=== PATIENT | male | born 1940 | race Caucasian/White ===

== ENCOUNTER → 2016-09-01 | Outpatient (CLI) | payer MEDICARE ==
--- NOTE | ~2016-09-01 | NDGEN ---
PATIENT'S NAME: YAMILA [facility] AGE: 76 Y [address] ROOM: [place], [place] [address] LOCATION: [facility] ADMIT DATE: 09/01/2016 Neurodiagnostics DISCHARGE DATE: FAMILY PHYSICIAN: Shalom Jansen MD ATTENDING PHYSICIAN: CALOS VARGAS PROCEDURE: NERVE CONDUCTION STUDY OF THE BILATERAL LOWER EXTREMITIES WITH BILATERAL EMGS. NEEDLE EMGS OF THE LOWER EXTREMITIES. 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 He has a prior history of lumbar laminectomy with decompression. The patient comes in with complaints of weakness into his legs and increasing fatigability of his legs. He also noted to have bilateral weakness in dorsiflexion of his feet with particular weakness in the left foot on dorsiflexion. Nerve conduction studies were performed in the bilateral lower extremity motor and sensory nerves including the left and right peroneal and tibial motor nerves and the sural sensory nerves. There was normal nerve conduction motor onset latencies and nerve conduction velocities; however there was severely diminished amplitudes of the left and right peroneal motor nerves and the left and right tibial motor nerves. The sural sensory nerve action potentials were absent bilaterally. On needle EMG of the left vastus lateralis, left gastrocnemius muscle, and left and right tibialis anterior muscle, there was no evidence of spontaneous electrical activity. No evidence of abnormal spontaneous electrical activity. When the muscles were recruited, these muscles showed full recruitment pattern with normal durations and normal sizes of these motor unit action potentials. The insertional pattern of these muscles were also within normal limits. IMPRESSION: There were severely diminished compound motor action potential amplitudes seen in the bilateral peroneal and tibial motor nerves as well as absent sensory nerve action potentials. Severe amplitude diminishment can be seen with severe sciatic root neuropathies usually after the lumbar nerve roots leave the low back and form the sciatic nerve. Because there was normal needle EMG findings with no diminished recruitment of motor unit action potentials and normal sizes of these motor unit action potentials, it is very difficult to point to a true lumbar radiculopathy based upon especially the needle EMG findings. Once again, the amplitudes reductions of these motor nerves and absent sural nerve conductions to point more to sciatic nerve PATIENT'S NAME: YAMILA HARLEY [facility] AGE: 76 Y [address] ROOM: [place], [place] [id number] LOCATION: [facility] ADMIT DATE: 09/01/2016 Neurodiagnostics DISCHARGE DATE: FAMILY PHYSICIAN: Shalom Jansen MD ATTENDING PHYSICIAN: CALOS VARGAS. The particular subtle weakness of dorsiflexion of the left foot actually showed normal motor unit action potentials and near normal recruitment of these motor units. Thus, the exact etiology of these nerve conduction findings are somewhat unclear as they may represent some post surgical injury to the sciatic roots or somehow related to his severe lumbar radiculopathy though again the needle EMG does not necessarily back up a lumbar radiculopathy finding. MD ROGELIO VIRK/jorgel /[id number] dtt: 09/14/16 [id number] , CALOS VARGAS dtd: 09/14/16 [id number]
== END | disposition disaster alternative care site (69) ==
LOC: GRAD 13:35
DX: M21.371 Foot drop, right foot (principal); M21.372 Foot drop, left foot; M62.81 Muscle weakness (generalized); M48.06 Spinal stenosis, lumbar region